=== PATIENT | female | born 1970 | race Caucasian/White ===

== ENCOUNTER → 2017-05-10 | Outpatient (CLI) | payer BC | LOC: LAB 06:43 | DX: Z13.220 Encounter for screening for lipoid disorders (principal); G43.709 Chronic migraine without aura, not intractable, without status migrainosus; Z86.718 Personal history of other venous thrombosis and embolism ==

== ENCOUNTER → 2017-06-03 | Outpatient (CLI) | payer BC | LOC: MAMMO 14:44 | DX: Z12.31 Encounter for screening mammogram for malignant neoplasm of breast (principal) | CPT/HCPCS: G0202 ==

== ENCOUNTER → 2017-06-05 | Outpatient (CLI) | payer BC | LOC: MAMMO 14:07 | DX: R92.8 Other abnormal and inconclusive findings on diagnostic imaging of breast (principal) ==

== ENCOUNTER → 2018-07-07 | Outpatient (CLI) | payer BC | LOC: MAMMO 08:20 | DX: Z12.31 Encounter for screening mammogram for malignant neoplasm of breast (principal) ==

== ENCOUNTER → 2022-11-29 | Outpatient (CLI) | payer BC | LOC: MAMMO 08:10 | DX: Z12.31 Encounter for screening mammogram for malignant neoplasm of breast (principal) ==